=== PATIENT | female | born 1995 | race Two or more races ===

== ENCOUNTER 2016-11-26 19:18 | Emergency (ER) | payer OTHER ==
[~2016-11-26] VITALS: Ht 157.5 cm; Wt 75.0 kg
[~2016-11-26 19:18] MED LIST: ACET50TA PO; COLA100C5 PO; MILKSUS PO; MOTR200T44 PO; NUPE1OIN2 TOP; PRENTAB31 PO
--- NOTE | 2016-11-26 20:20 | REPUSA ---
CT of the lumbar spine without contrast Clinical history: Pain. Technique: Multiple axial CT images were obtained through the lumbar spine without administration of contrast. Coronal and sagittal 3-D reconstructed images were also obtained. Findings: The lumbar vertebral bodies are in satisfactory positioning and alignment. No fractures or dislocatio ns are demonstrated. Intervertebral disc spaces are well-maintained. There is moderate disc bulging a t L4/L5, with the disc bulge measuring 6 mm in diameter. The central canal measures [address] at this level. At L5/S1, there is mild disc bulging with the disc bulge measuring 3 mm in diamete r. The central canal measures 9 mm in AP diameter at this level. There is no evidence of facet sublux ation. The neural foramen appear grossly patent. The surrounding soft tissues are within normal limit s. Impression: 1. No acute fractures or osseous abnormality. 2. Moderate disc bulge at L4/L5 with mild central canal stenosis. 3. Mild disc bulge at L5/S1 with mild central canal stenosis. 4. If there is further clinical concern, MRI is recommended for further evaluation.
[2016-11-26 20:54] VITALS: BP 131/80
== END 2016-11-26 20:57 | disposition home or self-care (01) ==
LOC: M ED 19:18
DX: M51.27 Other intervertebral disc displacement, lumbosacral region (principal); V49.40XA Driver injured in collision with unspecified motor vehicles in traffic accident, initial encounter; Y92.410 Unspecified street and highway as the place of occurrence of the external cause; Y93.89 Activity, other specified; Y99.9 Unspecified external cause status